=== PATIENT | male | born 1995 | race American Indian/Alaskan Native ===

== ENCOUNTER 2018-05-27 11:01 | Emergency (ER) | payer SELFPAY ==
[2018-05-27 11:06] VITALS: BP 152/83
--- NOTE | 2018-05-27 12:11 | Emergency Department Report ---
ED Male HPI - General Chief complaint: Urogenital-Male Stated complaint: STD CHECK UP Source: patient Mode of arrival: Ambulatory Limitations: No Limitations - History of Present Illness Initial comments: 23-year-old -[place] male who's had a penile discharge and dysuria for approximately a week. Patient also has a slight rash to his penis as well. Patient denies any abdominal pain at this time. Patient states there is no fever. Patient has had a protective sex. - Related Data Allergies Allergy/AdvReac Type Severity Reaction Status Date / Time No Known Allergies Allergy Verified 05/27/18 11:03 ED Review of Systems ROS: Stated complaint: STD CHECK UP Other details as noted in HPI Comment: All other systems reviewed and negative ED Past Medical Hx - Past Medical History Previous Medical History?: No - Surgical History Past Surgical History?: No - Social History Smoking Status: Current Every Day Smoker Substance Use Type: Marijuana ED Physical Exam - General Limitations: No Limitations General appearance: alert, in no apparent distress - Head Head exam: Present: atraumatic, normocephalic - Eye Eye exam: Present: normal appearance - ENT ENT exam: Present: mucous membranes moist - Neck Neck exam: Present: normal inspection - Respiratory Respiratory exam: Present: normal lung sounds bilaterally. Absent: respiratory distress - Cardiovascular Cardiovascular Exam: Present: regular rate, normal rhythm. Absent: systolic murmur, diastolic murmur, rubs, gallop - GI/Abdominal GI/Abdominal exam: Present: soft, normal bowel sounds - Rectal Rectal exam: Present: deferred - Extremities Exam Extremities exam: Present: normal inspection - Back Exam Back exam: Present: normal inspection - Neurological Exam Neurological exam: Present: alert, oriented X3 - Psychiatric Psychiatric exam: Present: normal affect, normal mood - Skin Skin exam: Present: warm, dry, intact, normal color. Absent: rash ED Course Vital Signs 05/27/18 11:03 Temperature 98.4 F Pulse Rate 69 Respiratory 18 Rate Blood Pressure 152/83 O2 Sat by Pulse 99 Oximetry ED Medical Decision Making - Medical Decision Making Patient is a non-medical emergency. Patient stated that he has [employer] insurance however with registration review the patient's insurance card the car and had the patient's name correct however there was a different birthdate that would' ve made the patient 16 years old. Patient is unable to verify his insurance. Patient was unwilling to call the primary ensure and frontal registrations that his information could be verified. Patient is self-pay and is elected not pay the [facility] hospital co-pay. Patient referred to the health Department and [facility] for further care. Critical care attestation.: If time is entered above; I have spent that time in minutes in the direct care of this critically ill patient, excluding procedure time. ED Disposition Clinical Impression: Urethritis Disposition: MED SCREENING EXAM-LEFT Is pt being admited?: No Does the pt Need Aspirin: No Condition: Stable Referrals: PRIMARY CARE,MD [Primary Care Provider] - 3-5 Days Forms: STI Treatment and Prevention Time of Disposition: 12:10
== END 2018-05-27 12:17 | disposition left against medical advice (07) ==
LOC: ED 11:01
DX: N34.2 Other urethritis (principal); F17.200 Nicotine dependence, unspecified, uncomplicated; F12.10 Cannabis abuse, uncomplicated
CPT/HCPCS: 99281

== ENCOUNTER 2018-08-20 13:42 | Emergency (ER) | payer OTHER ==
[2018-08-20 14:03] VITALS: BP 151/97
--- NOTE | 2018-08-20 15:11 | Emergency Department Report ---
Chief Complaint: Urogenital-Male Stated Complaint: SYPHILLIS Time Seen by Provider: 08/20/18 14:37 - HPI History of Present Illness: Patient is a 23-year-old [place] male who states he is here for treatment for syphilis. Patient states he is unsure if he was exposed but was told that one of his partners may have syphilis. Patient denies any penile discharge pain from urination or sores to the penis or genitals. Patient is completely asymptomatic at this time has no pain itching or burning. - ROS Review of Systems: All other symptoms are reviewed and are negative - Exam Vital Signs: Vital Signs 08/20/18 14:00 Temperature 98.9 F Pulse Rate 77 Respiratory 18 Rate Blood Pressure 151/97 O2 Sat by Pulse 96 Oximetry Physical Exam: Patient is alert and oriented 3 in no acute distress. Patient's abdomen is soft and nontender heart tones are normal. MSE screening note: Focused history and physical exam performed. Due to findings the following was ordered: ED Medical Decision Making - Medical Decision Making Myself and registration had a long conversation with this patient. Patient would be better served going to the health department for this condition as the workup for syphilis and a non-symptomatic patient would be very costly. Patient has insurance but has $150 co-pay and because this is a nonlife-threatening condition with no symptoms his insurance likely would not cover the ER bill. Patient is opted to not pale $150 and will follow with the health Department instead. ED Disposition for MSE Clinical Impression: Possible exposure to STD Disposition: - MED SCREENING EXAM-LEFT Is pt being admited?: No Does the pt Need Aspirin: No Condition: Stable Referrals: PRIMARY CARE, [Primary Care Provider] - 3-5 Days Time of Disposition: 15:11
== END 2018-08-20 15:16 | disposition left against medical advice (07) ==
LOC: ED 13:42
DX: Z20.2 Contact with and (suspected) exposure to infections with a predominantly sexual mode of transmission (principal); Z11.3 Encounter for screening for infections with a predominantly sexual mode of transmission
CPT/HCPCS: 99281